=== PATIENT | male | born 1940 | race Caucasian/White ===

== ENCOUNTER 2021-09-14 18:53 | Inpatient (IN) | payer MEDICARE, MEDICAID, SELFPAY ==
--- NOTE | ~2021-09-14 | US_ITS ---
EXAMINATION: US ABDOMEN COMPLETE CLINICAL INFORMATION: Pain. COMPARISON: None TECHNIQUE: Real-time imaging of the abdominal viscera. FINDINGS: PANCREAS: Not well seen due to bowel gas ABDOMINAL AORTA: Not well seen due to bowel gas INFERIOR VENA CAVA: Not well seen due to bowel gas LIVER: Left lobe of the liver is not well visualized. The right lobe appears slightly enlarged measuring 18 cm. Liver echotexture is normal. No mass or biliary duct dilatation. GALLBLADDER: Not seen COMMON BILE DUCT: Not seen RIGHT KIDNEY: There is a 2 cm cyst in the midpole. No hydronephrosis or renal calculi. The kidney measures 9.3 cm in maximum dimension. LEFT KIDNEY: There is left hydronephrosis. The kidney measures 10.5 cm in maximum dimension. SPLEEN: Not seen FREE FLUID: None. US/US abdomen complete IMPRESSION: Very limited exam with nonvisualization of the pancreas, left lobe of the liver, gallbladder and common bile duct, aorta and IVC. Left hydronephrosis. Right renal cyst.
--- NOTE | 2021-09-14 19:28 | ED.MALEGU ---
HPI - Male Genitourinary General Chief complaint: Urogenital-Male Stated complaint: SUPRAPUBIC CATHETER DRAINAGE Time Seen by Provider: 09/14/21 19:28 Source: EMS Mode of arrival: EMS Limitations: altered mental status History of Present Illness HPI Narrative: Patient sent from halfway for suprapubic catheter change draining pus. Patient with history of CVA with longstanding suprapubic catheter no other complaints no fever no vomiting Related Data Allergies Allergy/AdvReac Type Severity Reaction Status Date / Time No Known Allergies Allergy Unverified 05/12/20 15:46 [No Known Allergies*] Review of Systems Review of Systems: Yes all other systems are reviewed and are negative PMFSH Social History Social History Advance Directives: Yes Advance Directives Information Provided: No Advance Directives on File: No Physical Exam Vital Signs: Vital Signs: Last Vital Signs Temp 98.9 F 09/14/21 23:21 Pulse 72 09/14/21 19:40 Resp 18 09/14/21 19:40 BP 126/82 09/14/21 19:40 Pulse Ox 100 09/14/21 19:40 BMI result Body Mass Index 23.6 Appearance: Alert. Oriented X2. No acute distress. ENT: Pharynx normal. Oral Mucosa moist Neck: Normal inspection. Neck supple. CVS: Normal heart rate and rhythm. Pulses normal. Respiratory: No respiratory distress. Equal air entry bilateral, no wheezing/rales/rhonchi Abdomen: Soft and nontender. Suprapubic catheter in place draining pus sounds are present, no mass palpable, no CVA tenderness Skin: Skin warm and dry. Normal skin color. Normal skin turgor. Extremities: No lower extremity edema. No calf tenderness Neuro: Oriented X 2. Residual right-sided weakness MDM - Male Genitourinary MDM Narrative Medical decision making narrative: Patient with pyuria new Clarke catheter was placed a suprapubicallyraining pus with leukocytosis patient is afebrile will admit patient for UTI for IV antibiotics Lab Data Result diagrams: 09/14/21 23:06 09/14/21 22:43 Labs: Lab Results 09/14/21 09/14/21 09/14/21 Range/Units 22:43 22:43 23:06 WBC 12.7 H (4.8-10.8) X10*3/uL RBC 3.71 L (4.60-5.80) X10*6/uL Hgb 10.9 L (14.0-18.0) g/dl Hct 33.5 L (42.0-52.0) % MCV 90.3 (80.0-98.0) fL MCH 29.4 (27.0-33.0) pg MCHC 32.5 (31.0-36.0) g/dl RDW 14.9 (11.0-16.0) % Plt Count 257 (160-400) X10*3/uL MPV 10.0 (9.4-12.4) fL Immature Gran % (Auto) 0.3 (0.0-0.4) % Neut % (Auto) 81.0 H (45-73) % Lymph % (Auto) 11.8 L (20-40) % [place] % (Auto) 5.8 (2-11) % Eos % (Auto) 0.8 (0-4) % Baso % (Auto) 0.3 (0-2) % Lymph # (Auto) 1.5 (1.2-4.9) X10*3/uL [place] # (Auto) 0.7 (0.1-1.2) X10*3/uL Eos # (Auto) 0.1 (0.0-0.4) X10*3/uL Baso # (Auto) 0.0 (0.0-0.2) X10*3/uL Abs Immat Gran (auto) 0.04 H (0.00-0.03) X10*3/uL Absolute Neuts (auto) 10.3 H (2.0-8.3) x10*3/uL Absolute Nucleated RBC 0.000 (0.0-0.012) X10*3/uL Nucleated RBC % (auto) 0.0 (0.0-0.2) /100WBC Sodium 144 (135-145) mmol/L Potassium 3.6 (3.3-5.1) mmol/L Chloride 105 (96-108) mmol/L Carbon Dioxide 28 (22-29) mmol/L Anion Gap 15 (12-20) BUN 20 H (9-16) mg/dL Creatinine 0.78 (0.5-1.4) mg/dL Estim Creat Clear Calc 76.6 Estimated GFR > 60 Random Glucose 136 H (60-115) mg/dL Lactic Acid (0.5-2.0) mmol/L Calcium 9.3 (8.4-10.2) mg/dL Total Bilirubin 0.5 (0.0-1.0) mg/dL AST 13 (5-37) U/L ALT 13 (0-40) U/L Alkaline Phosphatase 92 (39-117) U/L Total Protein 7.2 (6.5-8.0) g/dL Albumin 3.6 (3.5-5.0) g/dL COVID-19 ([facility]) Negative (Negative) COVID-19 Clin Com See Note 09/14/21 Range/Units 23:06 WBC (4.8-10.8) X10*3/uL RBC (4.60-5.80) X10*6/uL Hgb (14.0-18.0) g/dl Hct (42.0-52.0) % MCV (80.0-98.0) fL MCH (27.0-33.0) pg MCHC (31.0-36.0) g/dl RDW (11.0-16.0) % Plt Count (160-400) X10*3/uL MPV (9.4-12.4) fL Immature Gran % (Auto) (0.0-0.4) % Neut % (Auto) (45-73) % Lymph % (Auto) (20-40) % [place] % (Auto) (2-11) % Eos % (Auto) (0-4) % Baso % (Auto) (0-2) % Lymph # (Auto) (1.2-4.9) X10*3/uL [place] # (Auto) (0.1-1.2) X10*3/uL Eos # (Auto) (0.0-0.4) X10*3/uL Baso # (Auto) (0.0-0.2) X10*3/uL Abs Immat Gran (auto) (0.00-0.03) X10*3/uL Absolute Neuts (auto) (2.0-8.3) x10*3/uL Absolute Nucleated RBC (0.0-0.012) X10*3/uL Nucleated RBC % (auto) (0.0-0.2) /100WBC Sodium (135-145) mmol/L Potassium (3.3-5.1) mmol/L Chloride (96-108) mmol/L Carbon Dioxide (22-29) mmol/L Anion Gap (12-20) BUN (9-16) mg/dL Creatinine (0.5-1.4) mg/dL Estim Creat Clear Calc Estimated GFR Random Glucose (60-115) mg/dL Lactic Acid 1.2 (0.5-2.0) mmol/L Calcium (8.4-10.2) mg/dL Total Bilirubin (0.0-1.0) mg/dL AST (5-37) U/L ALT (0-40) U/L Alkaline Phosphatase (39-117) U/L Total Protein (6.5-8.0) g/dL Albumin (3.5-5.0) g/dL COVID-19 ([facility]) (Negative) COVID-19 Clin Com Procedures Catheter Insertion (Urinary) Date of insertion: 09/14/21 Reason for placing indwelling catheter: Urinary obstruction Catheter type/location: Suprapubic Size (Chinese): 16 Catheter balloon size (mL): 10 Catheter balloon amount: 10 Results: successfully catheterized-immediate flow Procedure performed: without complications Discharge Plan Discharge Clinical Impression: UTI (urinary tract infection) Qualifiers: Urinary tract infection type: acute cystitis Hematuria presence: without hematuria Qualified Code(s): N30.00 - Acute cystitis without hematuria Patient Disposition: Admitted As Inpatient
[2021-09-14 19:31] VITALS: BP 174/84; PULSE 89; RESP 14; TEMP 37.1; O2SAT 96
[2021-09-14 19:40] VITALS: BP 126/82; PULSE 72; RESP 18; TEMP 35.5; O2SAT 100; BMI 28.3
[2021-09-14 19:42] VITALS: BMI 23.6
--- NOTE | 2021-09-14 19:48 | PC.NURSE ---
Triage assessment, CC, vitals etc. charted by this RN erroneous- applicable to different patient. Documentation by primary RN is correct
--- NOTE | 2021-09-14 22:23 | PC.NURSE ---
patient refuses to have any blood work tonight stating not tonight .
[2021-09-14 23:04] LABS: COVID-19 Test Negative (Negative); IDNOW Serial# 9DD0AD1C
[2021-09-14 23:08] LABS: Alanine Aminotransferase 13 U/L (0-40); Albumin Level 3.6 g/dL (3.5-5.0); Alkaline Phosphatase 92 U/L (39-117); Anion Gap 15 (12-20); Aspartate Amino Transferase 13 U/L (5-37); Bilirubin Total 0.5 mg/dL (0.0-1.0); Blood Urea Nitrogen 20 mg/dL (9-16); Calcium 9.3 mg/dL (8.4-10.2); Carbon Dioxide 28 mmol/L (22-29); Chloride 105 mmol/L (96-108); Creatinine Clr Calc Pharmacy 76.6; Estimated Glomerular Filt Rate > 60; Glucose Random 136 mg/dL (60-115); Potassium 3.6 mmol/L (3.3-5.1); Sodium 144 mmol/L (135-145); Total Protein 7.2 g/dL (6.5-8.0)
[2021-09-14 23:12] LABS: MANUAL DIFF FLAG NO
[2021-09-14 23:14] LABS: Basophils Percent Auto 0.3 % (0-2); Eosinophils Absolute Auto 0.1 X10*3/uL (0.0-0.4); Eosinophils Percent Auto 0.8 % (0-4); Hematocrit 33.5 % (42.0-52.0); Hemoglobin 10.9 g/dl (14.0-18.0); Imm Gran Abs Auto 0.04 X10*3/uL (0.00-0.03); Imm Gran Pct Auto 0.3 % (0.0-0.4); Lymphocytes Absolute Auto 1.5 X10*3/uL (1.2-4.9); Lymphocytes Percent Auto 11.8 % (20-40); Mean Corpuscular HGB Conc 32.5 g/dl (31.0-36.0); Mean Corpuscular Hemoglobin 29.4 pg (27.0-33.0); Mean Corpuscular Volume 90.3 fL (80.0-98.0); Monocytes Absolute Auto 0.7 X10*3/uL (0.1-1.2); Monocytes Percent Auto 5.8 % (2-11); Neutrophils Absolute Auto 10.3 x10*3/uL (2.0-8.3); Platelet Count 257 X10*3/uL (160-400); Red Blood Count 3.71 X10*6/uL (4.60-5.80); Red Cell Distribution Width 14.9 % (11.0-16.0); White Blood Count 12.7 X10*3/uL (4.8-10.8)
[2021-09-14] MEDS: cefTRIAXone sodium 1 GM in 0.9 % Sodium Chloride 50 ML IV (23:17)
[2021-09-14] MEDS: 0.9 % Sodium Chloride 1,000 ML 999 ML IV (23:18)
[2021-09-14 23:21] VITALS: TEMP 37.2
--- NOTE | 2021-09-14 23:24 | PC.NURSE ---
pt clean and change into hospital attire. labs drawn and Medicated per Oct.
[2021-09-14 23:28] LABS: Lactic Acid 1.2 mmol/L (0.5-2.0)
--- NOTE | 2021-09-14 23:38 | P.HPHOSP_ITS ---
History of Present Illness Date of Service: 09/14/21 Chief Complaint: Pus from the suprapubic catheter 80-year-old male with a past medical history of hypertension, hyperlipidemia, diabetes, CAD, CVA with right-sided hemiplegia; right knee contracture, major depressive disorder, BPH, obstructive and reflux uropathy-chronic suprapubic catheter; history of recurrent UTIs; presented to the hospital today with a chi ef complaint of pus draining from the suprapubic catheter. From the records and ER staff patient is a poor historian. Most of the history obtained from the records and ER staff Reportedly patient has been having abdominal discomfort and noted to have pus draining from his suprapubic catheter; and sent to the ER for further evaluation. Patient denies any fever chills cough. Denies any chest pain or palpitations. Review of all other systems is limited. ER course: Per ER team patient noted to have pus draining from his suprapubic catheter on presentation concerning for UTI; suprapubic catheter was changed. UA pending. Noted to have mild leukocytosis. Given ceftriaxone. for further management. PMFSH Pertinent family history: Reviewed Social History Advance Directives: Yes Advance Directives Information Provided: No Advance Directives on File: No Meds Allergies Allergy/AdvReac Type Severity Reaction Status Date / Time No Known Allergies Allergy Unverified 05/12/20 15:46 [No Known Allergies*] Physical Exam Verdana 4l Vital Signs and Narrative: Verdana 4d Verdana 4d Vital Signs: Verdana 4d Verdana 4Bd Last Vital Signs Verdana 4d Head Of Ict New 4d Head Of Ict New 4d Temp 98.9 F 09/14/21 23:21 Head Of Ict New 4d Pulse 72 09/14/21 19:40 Head Of Ict NewNew 4d Resp 18 09/14/21 19:40 BP 126/82 09/14/21 19:40 Pulse Ox 100 09/14/21 19:40 BMI result Body Mass Index 23.6 Gen: Appears be in no acute distress HEENT: NCAT, Moist mucosa. Pulmonary: Vesicular breath sounds, fair air entry CVS: Normal S1-S2 Abdomen: BS+, Soft, suprapubic catheter was replaced. Noted mild hyperemia,erythema around suprapubic catheter.; mildly tender abdomen diffusely, no guarding no rigidity Extremities: Warm well perfused Neuro: Alert and awake. Results Labs CBC and Chem 7: 09/14/21 23:06 09/14/21 22:43 Labs: Laboratory Results - last 24 hr 09/14/21 09/14/21 09/14/21 22:43 22:43 23:06 MCV 90.3 MCH 29.4 MCHC 32.5 RDW 14.9 Plt Count 257 MPV 10.0 Immature Gran % (Auto) 0.3 Neut % (Auto) 81.0 H Lymph % (Auto) 11.8 L [place] % (Auto) 5.8 Eos % (Auto) 0.8 Baso % (Auto) 0.3 Lymph # (Auto) 1.5 [place] # (Auto) 0.7 Eos # (Auto) 0.1 Baso # (Auto) 0.0 Abs Immat Gran (auto) 0.04 H Absolute Neuts (auto) 10.3 H Absolute Nucleated RBC 0.000 Nucleated RBC % (auto) 0.0 Anion Gap 15 Estim Creat Clear Calc 76.6 Estimated GFR > 60 Random Glucose 136 H Lactic Acid Calcium 9.3 Total Bilirubin 0.5 AST 13 ALT 13 Alkaline Phosphatase 92 Total Protein 7.2 Albumin 3.6 COVID-19 ([facility]) Negative COVID-19 Clin Com See Note 09/14/21 23:06 MCV MCH MCHC RDW Plt Count MPV Immature Gran % (Auto) Neut % (Auto) Lymph % (Auto) [place] % (Auto) Eos % (Auto) Baso % (Auto) Lymph # (Auto) [place] # (Auto) Eos # (Auto) Baso # (Auto) Abs Immat Gran (auto) Absolute Neuts (auto) Absolute Nucleated RBC Nucleated RBC % (auto) Anion Gap Estim Creat Clear Calc Estimated GFR Random Glucose Lactic Acid 1.2 Calcium Total Bilirubin AST ALT Alkaline Phosphatase Total Protein Albumin COVID-19 ([facility]U) COVID-19 Clin Com Assessment and Plan (1) UTI (urinary tract infection): Status: Acute 80-year-old male with a past medical history of hypertension, hyperlipidemia, diabetes, CAD, CVA with right-sided hemiplegia; right knee contracture, major depressive disorder, BPH, obstructive and reflux uropathy-chronic suprapubic catheter; history of recurrent UTIs; presented to the hospital today with a chief complaint of pus draining from the suprapubic catheter. Noted to have UTI. Admitted for further management. UTI/Mild cellulitis around suprapubic cath site: Patient was draining pus from suprapubic catheter. Catheter was changed in the ER. UA pending Continue ceftriaxone Follow-up cultures Urology follow-up US abd ordered Diabetes: Insulin sliding scale For all other chronic conditions, home medications will be continued, Pending med rec. Code status: DNR/DNI. Patient has MOLST form. Quality Stroke Does the patient have a stroke diagnosis?: No VTE Prior VTE?: No VTE Risk Level:: Medical - low VTE Device Contraindication: Treatment Not Indicated VTE Drug Contraindication: N/A - Med Ordered
[2021-09-15 05:34] VITALS: BP 191/89; PULSE 80; RESP 18; O2SAT 98
--- NOTE | 2021-09-15 07:26 | PC.NURSE ---
assumed care of pt at 0700 - heparin not given on previous shift. placed order for med rec to be completed
[2021-09-15 07:55] LABS: Glucose, Whole Blood 83 mg/dL (60-115)
[2021-09-15 07:57] VITALS: BP 195/94; PULSE 80; TEMP 36.5; O2SAT 96
[2021-09-15] MEDS: Heparin Sodium,Porcine 5,000 UNIT/ML VIAL 5000 UNIT SUBCUT ×2 (08:02→16:43)
[2021-09-15] MEDS: 0.9 % Sodium Chloride Flush 3 ML SYRINGE IVFLUSH ×2 (08:03→16:44)
[2021-09-15] MEDS: amLODIPine Besylate 5 MG TABLET PO (09:05)
--- NOTE | 2021-09-15 09:52 | MHC.CM.PN ---
VM MESSAGE LEFT FOR PTS HCP, MACHO MENDOZA ([phone]), REQUESTING A RETURN CALL. MESSAGE LEFT AT [phone] ON 09/15/21.
[2021-09-15 10:37] VITALS: BP 177/86; PULSE 86; RESP 16; TEMP 36.4; O2SAT 97
--- NOTE | 2021-09-15 10:54 | PHA.MEDREC ---
med rec complete, no issues, based off long-term mar. Pharmacy Consult ? Medication Reconciliation Pharmacy has completed the medication reconciliation.
--- NOTE | 2021-09-15 10:55 | HO.PM.IMPN ---
Subjective Subjective Date of Service: 09/18/21 Interval History: seen and examined no complaints pleasantly confused Review of Systems negative except HPI Physical Exam Vital Signs: Vital Signs: Last Vital Signs Temp 97.5 F 09/15/21 10:37 Pulse 86 09/15/21 10:37 Resp 16 09/15/21 10:37 BP 177/86 H 09/15/21 10:37 Pulse Ox 97 09/15/21 10:37 BMI result Body Mass Index 23.6 Const: Other: General - no acute distress, appears comfortable Cardiovascular - regular rate and rhythm, S1-S2 Lungs - normal respiratory effort, clear to auscultation bilaterally, no wheezing Abdomen - soft, nontender, no rebound or guarding - suprapubic cath in place Extremities - no edema bilaterally Neuro - awake and alert, disoriented to place, time, situation Objective Data Active Medications Acetaminophen (Acetaminophen 325 Mg Tablet) 650 mg PO Q6H PRN PRN Reason: Pain, Mild (Pain Scale 1-3) Dextrose (Dextrose 50 % 25 Gm/50 Ml Syringe) 25 gm IVPUSH Q15M PRN; Protocol PRN Reason: per Hypoglycemia Standing Ord. Glucose (Glucose Gel 15 Gm Gel..Gram.) 15 gm PO Q15M PRN; Protocol PRN Reason: per Hypoglycemia Standing Ord. Heparin Sodium (Porcine) (Heparin Sodium,Porcine 5,000 Unit/Ml Vial) 5,000 unit SUBCUT Q8H [facility] Last Admin: 09/15/21 08:02 Dose: 5,000 unit Documented by: DWIGHT Ceftriaxone Sodium 1 gm/ (Sodium Chloride) 50 mls @ 100 mls/hr IV Q24H [facility] Insulin Human Lispro (Insulin Lispro 100 Unit/Ml 3 Ml Vial) 0 unit SUBCUT QIDACHS [facility]; Protocol Last Admin: 09/15/21 08:08 Dose: Not Given Documented by: COOPEB Non-Admin Reason: No Insulin Coverage Melatonin (Melatonin 3 Mg Tablet) 6 mg PO BEDTIME PRN PRN Reason: Insomnia Pharmacy Consult (Consult Rx Perform Med Rec) 1 each MISCELLANE ONCE PRN PRN Reason: Consult order Senna (Sennosides 8.6 Mg Tablet) 17.2 mg PO BEDTIME PRN PRN Reason: Constipation Sodium Chloride (0.9 % Sodium Chloride Flush 3 Ml Syringe) 3 ml IVFLUSH QSHIFT [facility] Last Admin: 09/15/21 08:03 Dose: 3 ml Documented by: DWIGHT Labs CBC & Chem 7: 09/15/21 12:22 09/15/21 12:22 Labs: Laboratory Results - last 24 hr 09/14/21 09/14/21 09/14/21 22:43 22:43 23:06 MCV 90.3 MCH 29.4 MCHC 32.5 RDW 14.9 Plt Count 257 MPV 10.0 Immature Gran % (Auto) 0.3 Neut % (Auto) 81.0 H Lymph % (Auto) 11.8 L [place] % (Auto) 5.8 Eos % (Auto) 0.8 Baso % (Auto) 0.3 Lymph # (Auto) 1.5 [place] # (Auto) 0.7 Eos # (Auto) 0.1 Baso # (Auto) 0.0 Abs Immat Gran (auto) 0.04 H Absolute Neuts (auto) 10.3 H Absolute Nucleated RBC 0.000 Nucleated RBC % (auto) 0.0 Anion Gap 15 Estim Creat Clear Calc 76.6 Estimated GFR > 60 POC Glucose Random Glucose 136 H Lactic Acid Calcium 9.3 Total Bilirubin 0.5 AST 13 ALT 13 Alkaline Phosphatase 92 Total Protein 7.2 Albumin 3.6 COVID-19 ([facility]U) Negative COVID-19 Clin Com See Note 09/14/21 09/15/21 23:06 07:51 MCV MCH MCHC RDW Plt Count MPV Immature Gran % (Auto) Neut % (Auto) Lymph % (Auto) [place] % (Auto) Eos % (Auto) Baso % (Auto) Lymph # (Auto) [place] # (Auto) Eos # (Auto) Baso # (Auto) Abs Immat Gran (auto) Absolute Neuts (auto) Absolute Nucleated RBC Nucleated RBC % (auto) Anion Gap Estim Creat Clear Calc Estimated GFR POC Glucose 83 Random Glucose Lactic Acid 1.2 Calcium Total Bilirubin AST ALT Alkaline Phosphatase Total Protein Albumin COVID-19 ([facility]U) COVID-19 Clin Com Microbiology Microbiology Results: Microbiology 09/14/21 22:43 Blood Culture - Preliminary Blood - Venous Assessment and Plan (1) UTI (urinary tract infection): Status: Acute Assessment and Plan: This is an 80 yo M from [facility] who presented to the ED with pus draining from subrapubic cath. He is admitted for further work up. 1. UTI hx of recurrent UTI -- with some resistant organisms (check old EMR) continue rocephin for now as clinically there is already improvement f/u UA (not sent yet) 2. Gram Neg bacteremia, likely due to UTI rocephin as above 3. Quality Stroke Does the patient have a stroke diagnosis?: No VTE Prior VTE?: No VTE Risk Level:: Medical - low VTE Device Contraindication: Treatment Not Indicated VTE Drug Contraindication: N/A - Med Ordered
[2021-09-15 11:26] LABS: Appearance Urine TURBID; Color Urine YELLOW; Glucose Urine UA NEG (NEG); Nitrite Urine NEG (NEG); PH 6.5 (5.0-8.0); Urine Blood 2+ (NEG); Urine Ketones NEG (NEG); Urine Protein 3+ MG/DL (NEG-TRACE)
[2021-09-15 11:27] LABS: Leukocyte Esterase Urine 3+ (NEG)
[2021-09-15 11:28] VITALS: BP 154/81
[2021-09-15] MEDS: Metoprolol Succinate ER 50 MG TAB.ER.24H PO (11:28)
[2021-09-15 11:32] LABS: WBC Urine TNTC /HPF (0-4)
[2021-09-15 11:33] LABS: Bacteria Urine 3+ /LPF
[2021-09-15 11:35] LABS: Glucose, Whole Blood 106 mg/dL (60-115)
[2021-09-15 12:37] LABS: Glucose, Whole Blood 100 mg/dL (60-115)
[2021-09-15 12:37] LABS: MANUAL DIFF FLAG NO
[2021-09-15 12:57] LABS: Basophils Percent Auto 0.2 % (0-2); Eosinophils Absolute Auto 0.1 X10*3/uL (0.0-0.4); Eosinophils Percent Auto 0.6 % (0-4); Hematocrit 36.2 % (42.0-52.0); Hemoglobin 11.3 g/dl (14.0-18.0); Imm Gran Abs Auto 0.02 X10*3/uL (0.00-0.03); Imm Gran Pct Auto 0.2 % (0.0-0.4); Lymphocytes Absolute Auto 1.4 X10*3/uL (1.2-4.9); Lymphocytes Percent Auto 15.9 % (20-40); Mean Corpuscular HGB Conc 31.2 g/dl (31.0-36.0); Mean Corpuscular Hemoglobin 28.8 pg (27.0-33.0); Mean Corpuscular Volume 92.3 fL (80.0-98.0); Mean Platelet Volume 10.3 fL (9.4-12.4); Monocytes Absolute Auto 0.6 X10*3/uL (0.1-1.2); Monocytes Percent Auto 6.7 % (2-11); Neutrophils Absolute Auto 6.6 x10*3/uL (2.0-8.3); Neutrophils Percent Auto 76.4 % (45-73); Platelet Count 261 X10*3/uL (160-400); Red Blood Count 3.92 X10*6/uL (4.60-5.80); Red Cell Distribution Width 15.1 % (11.0-16.0); White Blood Count 8.6 X10*3/uL (4.8-10.8)
--- NOTE | 2021-09-15 13:21 | P.CNUR_ITS ---
History of Present Illness Consult details Consult date: 09/15/21 Narrative: Xander is an 80-year-old male Present to hospital question of UTI Had previous UTIs and suprapubic tube placed Suprapubic tube changed by ER physician last night Good drainage today Initial WBC 12.7 Treat with possible UTI Leave suprapubic tube to drainage Should continue to have monthly exchanges Review of Systems Constitutional: Constitutional: Reports as per HPI and Reports no additional constitutional complaints Cardiovascular: Cardiovascular: Reports as per HPI and Reports no additional cardiovascular complaints Respiratory: Respiratory: Reports as per HPI and Reports no additional r espiratory complaints Gastrointestinal: Gastrointestinal: Reports as per HPI and Reports no additional gastrointestinal complaints Genitourinary: Genitourinary: Reports as per HPI Musculoskeletal: Musculoskeletal: Reports no additional musculoskeletal complaints and Reports as per HPI Neurologic: Reports system reviewed and no additional complaints, except as documented and Reports as per HPI [facility] Social History Social History Advance Directives: Yes Advance Directives Information Provided: No Advance Directives on File: No Meds Allergies Allergy/AdvReac Type Severity Reaction Status Date / Time No Known Allergies Allergy Unverified 05/12/20 15:46 [No Known Allergies*] Active Medications: Current Medications Acetaminophen (Acetaminophen 325 Mg Tablet) 650 mg PO Q6H PRN PRN Reason: Pain, Mild (Pain Scale 1-3) Aspirin (Aspirin 81 Mg Tab.Chew) 81 mg PO DAILY MELY Dextrose (Dextrose 50 % 25 Gm/50 Ml Syringe) 25 gm IVPUSH Q15M PRN; Protocol PRN Reason: per Hypoglycemia Standing Ord. Famotidine (Famotidine 20 Mg Tablet) 20 mg PO BEDTIME MELY Glucose (Glucose Gel 15 Gm Gel..Gram.) 15 gm PO Q15M PRN; Protocol PRN Reason: per Hypoglycemia Standing Ord. Heparin Sodium (Porcine) (Heparin Sodium,Porcine 5,000 Unit/Ml Vial) 5,000 unit SUBCUT Q8H [facility] Last Admin: 09/15/21 08:02 Dose: 5,000 unit Documented by: Ceftriaxone Sodium 1 gm/ (Sodium Chloride) 50 mls @ 100 mls/hr IV Q24H [facility] Melatonin (Melatonin 3 Mg Tablet) 6 mg PO BEDTIME PRN PRN Reason: Insomnia Metoprolol Succinate (Metoprolol Succinate Er 50 Mg Tab.Er.24h) 50 mg PO DAILY [facility]; Protocol Last Admin: 09/15/21 11:28 Dose: 50 mg Documented by: Pharmacy Consult (Consult Rx Perform Med Rec) 1 each MISCELLANE ONCE PRN PRN Reason: Consult order Senna (Sennosides 8.6 Mg Tablet) 17.2 mg PO BEDTIME PRN PRN Reason: Constipation Sodium Chloride (0.9 % Sodium Chloride Flush 3 Ml Syringe) 3 ml IVFLUSH QSHIFT [facility] Last Admin: 09/15/21 08:03 Dose: 3 ml Documented by: Home Medications Medication Instructions Recorded Confirmed Last Taken Type acetaminophen 325 mg tablet 650 mg PO Q4H PRN 09/15/21 09/15/21 Unknown History aspirin 81 mg chewable tablet 81 mg PO DAILY 09/15/21 09/15/21 Unknown History bisacodyl 10 mg rectal suppository 10 mg UT DAILY PRN 09/15/21 09/15/21 Unknown History famotidine 20 mg tablet 1 tab PO BEDTIME 09/15/21 09/15/21 Unknown History magnesium hydroxide 400 mg/5 mL 30 ml PO DAILY PRN 09/15/21 09/15/21 Unknown History oral suspension (Milk of Magnesia) metoprolol succinate 50 mg 1 tab PO DAILY 09/15/21 09/15/21 Unknown History tablet,extended release 24 hr potassium chloride 10 mEq 1 tab PO DAILY 09/15/21 09/15/21 Unknown History tablet,extended release(part/cryst) sennosides 8.6 mg tablet (senna) 8.6 mg PO BEDTIME 09/15/21 09/15/21 Unknown History Physical Exam Vital Signs: Vital Signs: Last Vital Signs Temp 97.5 F 09/15/21 10:37 Pulse 86 09/15/21 10:37 Resp 16 09/15/21 10:37 BP 154/81 H 09/15/21 11:28 Pulse Ox 97 09/15/21 10:37 BMI result Body Mass Index 23.6 Const: General: cooperative, healthy appearing, comfortable and no acute distress Orientation/consciousness: patient oriented x3 HENMT: Face and sinus: Yes normal facial exam Mouth: moist mucous membranes Neck: Neck: Yes normal visual inspection, Yes full ROM and Yes trachea midline Chest: Chest palpation & inspection: normal inspection of the chest Resp: Effort & Inspection: normal respiratory effort, able to speak in complete sentences and no respiratory distress GI: Inspection: Yes normal to inspection Back/Spine/Pelvis: Cervical Spine: normal cervical lordosis Thoracic/Lumbar Spine: thoracic and lumbar spine normal to inspection Skin: General skin exam: no rashes or lesions noted Neuro: General: patient oriented x3, tone normal and moves all extremities Extrem: General: Yes normal to inspection and Yes capillary refill normal Results Labs Result diagrams: 09/15/21 12:22 09/14/21 22:43 Labs: Abnormal lab results 09/14/21 09/14/21 09/15/21 Range/Units 22:43 23:06 11:03 WBC 12.7 H (4.8-10.8) X10*3/uL RBC 3.71 L (4.60-5.80) X10*6/uL Hgb 10.9 L (14.0-18.0) g/dl Hct 33.5 L (42.0-52.0) % Neut % (Auto) 81.0 H (45-73) % Lymph % (Auto) 11.8 L (20-40) % Abs Immat Gran (auto) 0.04 H (0.00-0.03) X10*3/uL Absolute Neuts (auto) 10.3 H (2.0-8.3) x10*3/uL BUN 20 H (9-16) mg/dL Random Glucose 136 H (60-115) mg/dL Urine Protein 3+ H (NEG-TRACE) MG/DL Urine Blood 2+ H (NEG) Ur Leukocyte Esterase 3+ H (NEG) Urine RBC 15-29 H (0) /HPF Urine WBC TNTC H (0-4) /HPF 09/15/21 Range/Units 12:22 WBC (4.8-10.8) X10*3/uL RBC 3.92 L (4.60-5.80) X10*6/uL Hgb 11.3 L (14.0-18.0) g/dl Hct 36.2 L (42.0-52.0) % Neut % (Auto) 76.4 H (45-73) % Lymph % (Auto) 15.9 L (20-40) % Abs Immat Gran (auto) (0.00-0.03) X10*3/uL Absolute Neuts (auto) (2.0-8.3) x10*3/uL BUN (9-16) mg/dL Random Glucose (60-115) mg/dL Urine Protein (NEG-TRACE) MG/DL Urine Blood (NEG) Ur Leukocyte Esterase (NEG) Urine RBC (0) /HPF Urine WBC (0-4) /HPF Short CBC 09/14/21 09/15/21 Range/Units 23:06 12:22 WBC 12.7 H 8.6 (4.8-10.8) X10*3/uL Hgb 10.9 L 11.3 L (14.0-18.0) g/dl Hct 33.5 L 36.2 L (42.0-52.0) % Plt Count 257 261 (160-400) X10*3/uL BMP 09/14/21 22:43 Sodium 144 Potassium 3.6 Chloride 105 Carbon Dioxide 28 BUN 20 H Creatinine 0.78 Calcium 9.3 Liver Function 09/14/21 Range/Units 22:43 Total Bilirubin 0.5 (0.0-1.0) mg/dL AST 13 (5-37) U/L ALT 13 (0-40) U/L Alkaline Phosphatase 92 (39-117) U/L Albumin 3.6 (3.5-5.0) g/dL Urine 09/15/21 Range/Units 11:03 Urine Color YELLOW Urine Appearance TURBID Urine pH 6.5 (5.0-8.0) Ur Specific [place] 1.020 (1.005-1.025) Urine Protein 3+ H (NEG-TRACE) MG/DL Urine Glucose (UA) NEG (NEG) MG/DL All other labs normal. Assessment and Plan (1) UTI (urinary tract infection): Qualifiers: Hematuria presence: without hematuria Urinary tract infection type: acute cystitis Qualified Code(s): N30.00 - Acute cystitis without hematuria Status: Acute (2) Hypotonic neurogenic bladder: Status: Acute Should continue to receive changes to bladder catheter every month Procedures Date of Service Date of Service: 09/15/21
[2021-09-15 13:28] LABS: Anion Gap 12 (12-20); Blood Urea Nitrogen 16 mg/dL (9-16); Calcium 8.9 mg/dL (8.4-10.2); Carbon Dioxide 28 mmol/L (22-29); Chloride 107 mmol/L (96-108); Creatinine Clr Calc Pharmacy 93.4; Estimated Glomerular Filt Rate > 60; Glucose Random 99 mg/dL (60-115); Potassium 3.4 mmol/L (3.3-5.1); Sodium 144 mmol/L (135-145)
[2021-09-15 16:37] VITALS: BP 155/73; PULSE 74; RESP 17; TEMP 36.9; O2SAT 97
[2021-09-15 18:11] LABS: Glucose, Whole Blood 129 mg/dL (60-115)
[2021-09-15 20:47] VITALS: BP 165/81; PULSE 76; RESP 16; TEMP 36.8; O2SAT 99
[2021-09-15] MEDS: Famotidine 20 MG TABLET PO (20:48)
[2021-09-15] MEDS: cefTRIAXone sodium 1 GM in 0.9 % Sodium Chloride 50 ML IV (22:38)
--- NOTE | 2021-09-15 23:01 | PC.NURSE ---
Assumed care of pt at 2300. Pt resting in bed, in NAD, even and non-labored respirations. Awaiting inpatient bed assignment
[2021-09-16] MEDS: Heparin Sodium,Porcine 5,000 UNIT/ML VIAL 5000 UNIT SUBCUT ×3 (00:07→16:43)
[2021-09-16 00:17] VITALS: PULSE 75; RESP 16; O2SAT 100
[2021-09-16 05:28] VITALS: BP 180/93; PULSE 74; RESP 20; O2SAT 98
[2021-09-16] MEDS: 0.9 % Sodium Chloride Flush 3 ML SYRINGE IVFLUSH ×2 (09:54→16:43)
[2021-09-16] MEDS: Aspirin 81 MG TAB.CHEW PO (09:54)
[2021-09-16] MEDS: Metoprolol Succinate ER 50 MG TAB.ER.24H PO (09:54)
--- NOTE | 2021-09-16 14:13 | P.PNIM_ITS ---
Subjective Subjective Date of Service: 09/16/21 Review of Systems Follow up UTI Sleepy today no complaints of pain Physical Exam Verdana 4l Vital Signs: Verdana 4d Verdana 4d Vital Signs: Verdana 4d Verdana 4Bd Last Vital Signs Verdana 4d Luis Felipe Moreira 4d Luis Felipe Moreira 4d Temp 98.2 F 09/15/21 20:47 Luis Felipe New 4d Pulse 74 09/16/21 05:28 Luis Felipe MoreiraNew 4d Resp 20 09/16/21 05:28 BP 180/93 H 09/16/21 05:28 Pulse Ox 98 09/16/21 05:28 BMI result Body Mass Index 23.6 Appearing in no acute distress lung sounds are clear to auscultation heart regular rate rhythm, clear S1, S2 positive bowel sounds, abdomen is soft, nontender neuro patient is alert x3, no focal deficits Objective Data Active Medications Acetaminophen (Acetaminophen 325 Mg Tablet) 650 mg PO Q6H PRN PRN Reason: Pain, Mild (Pain Scale 1-3) Aspirin (Aspirin 81 Mg Tab.Chew) 81 mg PO DAILY [facility] Last Admin: 09/16/21 09:54 Dose: 81 mg Documented by: ZHANNA Dextrose (Dextrose 50 % 25 Gm/50 Ml Syringe) 25 gm IVPUSH Q15M PRN; Protocol PRN Reason: per Hypoglycemia Standing Ord. Famotidine (Famotidine 20 Mg Tablet) 20 mg PO BEDTIME [facility] Last Admin: 09/15/21 20:48 Dose: 20 mg Documented by: KIANAOPEPavel Glucose (Glucose Gel 15 Gm Gel..Gram.) 15 gm PO Q15M PRN; Protocol PRN Reason: per Hypoglycemia Standing Ord. Heparin Sodium (Porcine) (Heparin Sodium,Porcine 5,000 Unit/Ml Vial) 5,000 unit SUBCUT Q8H [facility] Last Admin: 09/16/21 09:54 Dose: 5,000 unit Documented by: ZHANNA Ceftriaxone Sodium 1 gm/ (Sodium Chloride) 50 mls @ 100 mls/hr IV Q24H [facility] Last Infusion: 09/15/21 23:21 Dose: 0 mls/hr Documented by: CARMEN Melatonin (Melatonin 3 Mg Tablet) 6 mg PO BEDTIME PRN PRN Reason: Insomnia Metoprolol Succinate (Metoprolol Succinate Er 50 Mg Tab.Er.24h) 50 mg PO DAILY [facility]; Protocol Last Admin: 09/16/21 09:54 Dose: 50 mg Documented by: ZHANNA Pharmacy Consult (Consult Rx Perform Med Rec) 1 each MISCELLANE ONCE PRN PRN Reason: Consult order Senna (Sennosides 8.6 Mg Tablet) 17.2 mg PO BEDTIME PRN PRN Reason: Constipation Sodium Chloride (0.9 % Sodium Chloride Flush 3 Ml Syringe) 3 ml IVFLUSH QSHIFT [facility] Last Admin: 09/16/21 09:54 Dose: 3 ml Documented by: ZHANNA Labs CBC & Chem 7: 09/15/21 12:22 09/15/21 12:22 Labs: Laboratory Results - last 24 hr 09/15/21 18:05 POC Glucose 129 H Microbiology Microbiology Results: Microbiology 09/15/21 11:03 Urine Culture - Preliminary Urine clean catch - Urine soriano top Culture too young to evaluate. 09/14/21 22:43 Blood Culture - Preliminary Blood - Venous Gram negative tavo 09/14/21 22:43 Blood Culture - Preliminary Blood - Venous Gram negative tavo Assessment and Plan (1) Hypotonic neurogenic bladder: Status: Acute (2) UTI (urinary tract infection): Status: Acute Assessment and Plan: This is an 80 yo M from SNF who presented to the ED with pus draining from subrapubic cath. He is admitted for further work up. UTI hx of recurrent UTI -- with some resistant organisms (check old EMR) continue rocephin for now as clinically there is already improvement f/u UA Neurogenic bladder Continue suprapubic catheter Gram Neg bacteremia, likely due to UTI rocephin follow cx Diabetes Sliding scale ADA diet Hypertension Continue BB DVT prophylaxis with heparin attending Dr. Pandya Full code Quality Stroke Does the patient have a stroke diagnosis?: No VTE Prior VTE?: No VTE Risk Level:: Medical - low VTE Device Contraindication: Treatment Not Indicated VTE Drug Contraindication: N/A - Med Ordered
--- NOTE | 2021-09-16 14:40 | MHC.CM.PN ---
ANDRE AND LEFT MESSAGE FORPTS SON MARSHALL COLINDRES IMM WILL BE SENT CERTIFIED MAIL PT [facility] WHERE IT IS EXPECTED HE WILL RETURN WHEN DCD
[2021-09-16] MEDS: Famotidine 20 MG TABLET PO (20:23)
[2021-09-16 21:08] VITALS: BP 212/92; PULSE 99; RESP 12; TEMP 36.6; O2SAT 95
[2021-09-16 21:09] VITALS: BP 220/95
[2021-09-16] MEDS: amLODIPine Besylate 5 MG TABLET PO (21:36)
--- NOTE | 2021-09-16 23:04 | PC.NURSE ---
pt resting in bed, 2100 POC low at 68, pt ate a pudding and drank juice, POC came up to 96. pt resting quietly, NAD, breathing even and unlabored.
[2021-09-17] VITALS: BP 176/87; PULSE 78; RESP 16; TEMP 36.8; O2SAT 95
[2021-09-17] MEDS: cefTRIAXone sodium 1 GM in 0.9 % Sodium Chloride 50 ML IV (00:02)
[2021-09-17] MEDS: Heparin Sodium,Porcine 5,000 UNIT/ML VIAL 5000 UNIT SUBCUT (00:05)
[2021-09-17] MEDS: 0.9 % Sodium Chloride Flush 3 ML SYRINGE IVFLUSH ×2 (00:06→08:58)
[2021-09-17 06:28] VITALS: BP 170/80; PULSE 74; RESP 16; TEMP 36.7; O2SAT 95
[2021-09-17 08:00] VITALS: BP 152/70; PULSE 60; TEMP 36.3; O2SAT 96
[2021-09-17 08:01] LABS: Glucose, Whole Blood 82 mg/dL (60-115)
[2021-09-17 08:01] LABS: Glucose, Whole Blood 82 mg/dL (60-115)
[2021-09-17 08:01] LABS: Glucose, Whole Blood 91 mg/dL (60-115)
[2021-09-17] MEDS: Aspirin 81 MG TAB.CHEW PO (08:58)
[2021-09-17] MEDS: Metoprolol Succinate ER 50 MG TAB.ER.24H PO (08:58)
--- NOTE | 2021-09-17 11:21 | P.DS_ITS ---
DS: Providers Provider Date of Service: 09/17/21 Date of admission: 09/14/21 23:36 Primary care physician: Unknown Physician Consults: 09/14/21 23:36 Consult to Urology Routine Consulting Provider: Olivier Arias Reason for consultation: UTI; hx suprapubic cath 09/17/21 07:57 Consult to Infectious Diseases Routine Consulting Provider: Ruthann Hayes Reason for consultation: ecoli bacteremia Has provider been notified: No Attending physician on discharge: Mario Bragg Discharging clinician: Radha Robbins DS: Diagnosis Discharge Diagnosis (1) Hypotonic neurogenic bladder: Status: Acute (2) UTI (urinary tract infection): Status: Acute DS: Summary Hospital Course Hospital Course: HP as per admitting provider 80-year-old male with a past medical history of hypertension, hyperlipidemia, diabetes, CAD, CVA with right-sided hemiplegia; right knee contracture, major depressive disorder, BPH, obstructive and reflux uropathy-chronic suprapubic catheter; history of recurrent UTIs; presented to the hospital today with a chief complaint of pus draining from the suprapubic catheter.? From the records and ER staff patient is a poor historian.?Most of the history obtained from the records and ER staff. Reportedly patient has been having abdominal discomfort and noted to have pus draining from his suprapubic catheter; and sent to the ER for further evaluation.?Patient denies any fever chills cough.? Denies any chest pain or palpitations.?Review of all other systems is limited.?ER course:Per ER team patient noted to have pus draining from his suprapubic catheter on presentation concerning for UTI; suprapubic catheter was changed.? UA pending. Noted to have mild leukocytosis.? Given cef triaxone. ? for further management . UTI hx of recurrent UTI with some resistant organisms treated with rocephin initially. He has Neurogenic bladder, He prested with pus in the catheter. He is to Continue suprapubic catheter, change monthly Gram Neg bacteremia, secondary to UTI. Initially treated with rocephin. Will send home with oral ceftin to complete course of antibiotics. Time Spent with Patient Time attestation: Total time spent providing and/or coordinating discharge services: Discharge coordination time: Greater than 30 minutes Quality: Stroke Does the patient have a stroke diagnosis?: No Physical Exam Vital Signs: Vital Signs: Last Vital Signs Temp 97.3 F 09/17/21 08:00 Pulse 60 09/17/21 08:00 Resp 16 09/17/21 06:28 BP 152/70 H 09/17/21 08:00 Pulse Ox 96 09/17/21 08:00 BMI result Body Mass Index 23.6 Appearing in no acute distress lung sounds are clear to auscultation heart regular rate rhythm, clear S1, S2 positive bowel sounds, abdomen is soft, nontender neuro patient is alert, confused MSK noted contractures DS: Data Data Completed and Pending Labs on day of discharge: Laboratory Results - last 24 hr 09/16/21 09/16/21 09/17/21 20:10 21:17 07:42 POC Glucose 82 91 82 Discharge Plan Discharge Anticipated Discharge Date/Time: 09/17/21 11:17 Patient Disposition: Xfer Inpatient Rehab Fac Discharge Diagnosis: urinary tract infection neurogenic bladder Discharge Medications: New cefuroxime axetil 500 mg tablet 500 mg PO BID Qty: 16 RF: 0 Continued metoprolol succinate 50 mg tablet extended release 24 hr 1 tab PO DAILY RF: 0 famotidine 20 mg tablet 1 tab PO BEDTIME RF: 0 potassium chloride 10 mEq tablet,ER particles/crystals 1 tab PO DAILY RF: 0 acetaminophen 325 mg Tablet 650 mg PO Q4H PRN (Reason: pain/fever) RF: 0 aspirin 81 mg Tablet,Chewable 81 mg PO DAILY RF: 0 bisacodyl 10 mg Suppository 10 mg NH DAILY PRN (Reason: Constipation) RF: 0 magnesium hydroxide [Milk of Magnesia] 400 mg/5 mL Suspension 30 ml PO DAILY PRN (Reason: Constipation) RF: 0 sennosides [senna] 8.6 mg Tablet 8.6 mg PO BEDTIME RF: 0 Discharge Orders: Discharge Order (Routine); Ordered 09/17/21 Ordered By: Radha Robbins Diet: advance to usual diet Activity on Discharge: As tolerated Stand Alone Forms: Patient Portal Discharge page Care Plan Goals: resolution of symptoms Health Concerns: urinary tract infection neurogenic bladder Plan of Treatment: Please change bladder catheter every month Follow-up with urologist as needed Assessment: see discharge summary
--- NOTE | 2021-09-17 11:44 | MHC.CM.PN ---
Notified Rashad of patient's anticipated return to SNF today at 1:00pm. Rashad in agreement.
--- NOTE | 2021-09-22 07:56 | P.CDIR_ITS ---
Retrospective Query PHYSICIAN'S DOCUMENTATION REQUEST Date of Query: 09/22/21 0756 Patient Name: Xander Daniels Admit Date: 09/14/21 Dear Doctor, A review of the medical record indicates additional documentation may be needed. Please review below and update the documentation accordingly. Verdana 4Bd Risk Factors/Clinical Indicators/Treatments Verdana 4d ED: Chronic suprapubic catheter, draining pus, mild wbc, UA + History of recurrent UTI's. IV antibiotics Neurogenic bladder. Replaced catheter in ED. Based on the above, could you clarify in the Progress Notes the appropriate diag nosis, if significant, that supports the above abnormalities and additional evaluation, monitoring, and/or treatment rendered: * UTI (gram negative bacteremia) due to suprapubic catheter (CAUTI) * Urinary tract infection * Other * Unable to determine Use of terms such as suspected, likely, concern for, or probable (associated with a specific diagnosis that is being evaluated, monitored, or treated as if it exists) are acceptable and can be coded in the inpatient setting, when documented at the time of discharge. Thank you, Renee Hampton CCS, CDIS Extension: [phone] Please use your independent medical judgment in providing your response. THIS QUERY IS PART OF THE PERMANENT MEDICAL RECORD
== END 2021-09-17 14:15 | DRG 699 ==
LOC: HO.ED 09-15 00:18 → HO.EDOVER 09-15 06:00
PROVIDERS: Physician Assistant Medical; Admitting Provider Hospitalist; Emergency Provider Internal Medicine; Visit Provider Nurse Practitioner Acute Care
DX: T83.511A Infection and inflammatory reaction due to indwelling urethral catheter, initial encounter (principal); I69.851 Hemiplegia and hemiparesis following other cerebrovascular disease affecting right dominant side; R78.81 Bacteremia; L03.311 Cellulitis of abdominal wall; N13.8 Other obstructive and reflux uropathy; N39.0 Urinary tract infection, site not specified; N31.9 Neuromuscular dysfunction of bladder, unspecified; I10 Essential (primary) hypertension; E11.9 Type 2 diabetes mellitus without complications; N40.1 Benign prostatic hyperplasia with lower urinary tract symptoms; Z20.822 Contact with and (suspected) exposure to COVID-19; Z87.440 Personal history of urinary (tract) infections; Z79.82 Long term (current) use of aspirin; Z79.899 Other long term (current) drug therapy; Z66 Do not resuscitate
CPT/HCPCS: 36415; 76700; 80048; 80053; 81001; 82947; 83605; 85025; 87040; 87077; 87086; 87186; 87205; 87635; 96361; 96374; 99284; 99285; J0696